=== PATIENT | female | born 1985 | race Caucasian/White ===

== ENCOUNTER 2022-08-18 15:59 | Outpatient (CLI) | payer BC | END 2022-08-18 23:59 | disposition home or self-care (01) | LOC: LAB 15:59 | PROVIDERS: ATTEND Nurse Practitioner | DX: M25.561 Pain in right knee (principal); M25.562 Pain in left knee; M54.2 Cervicalgia; M54.6 Pain in thoracic spine; M54.50 Low back pain, unspecified; G89.29 Other chronic pain; Z87.828 Personal history of other (healed) physical injury and trauma | CPT/HCPCS: 72050; 72074; 72110; 73564 ==

== ENCOUNTER 2022-12-25 07:39 | Outpatient (CLI) | payer BC | END 2022-12-25 23:59 | disposition home or self-care (01) | LOC: RAD 07:39 | PROVIDERS: ATTEND Nurse Practitioner | DX: M40.50 Lordosis, unspecified, site unspecified (principal); M54.2 Cervicalgia | CPT/HCPCS: 72141 ==